=== PATIENT | female | born 1995 | race Caucasian/White ===

== ENCOUNTER 2022-08-26 19:24 | Emergency (ER) | payer MEDICAID ==
[~2022-08-26] VITALS: Ht 167.6 cm; Wt 61.4 kg
[2022-08-26] MEDS ORDERED: HYDROcodone/acetaminophen 5mg/325mg tablet PO ONE (20:20)
[2022-08-26] MEDS ORDERED: ondansetron 4mg rapidly disintigrating tab PO ONE (20:20)
[2022-08-26] MEDS ORDERED: HYDR-3965 PO (20:41)
[2022-08-26] MEDS ORDERED: ONDA4TAB12 PO (20:41)
[2022-08-26 20:51] VITALS: BP 115/72
== END 2022-08-26 20:53 | disposition home or self-care (01) ==
LOC: ER 19:25
DX: M79.601 Pain in right arm (principal); Z88.8 Allergy status to other drugs, medicaments and biological substances; Z79.899 Other long term (current) drug therapy; X58.XXXA Exposure to other specified factors, initial encounter; Y93.89 Activity, other specified; Y92.89 Other specified places as the place of occurrence of the external cause; Y99.8 Other external cause status
CPT/HCPCS: 29125; 73130; 99283; A6446; A6449

== ENCOUNTER 2022-09-04 09:26 | Emergency (ER) | payer MEDICAID ==
[~2022-09-04] VITALS: Ht 167.6 cm; Wt 58.6 kg
[~2022-09-04 09:26] MED LIST: ONDA4TAB12 PO
[2022-09-04 09:33] VITALS: BP 106/64
--- NOTE | 2022-09-04 09:38 | NUR ---
DOCTORS MADE AWRE OF PT WAITING FOR MED SCREENING
--- NOTE | 2022-09-04 09:44 | NUR ---
LONG IN ROOM FOR MED SCREENING EXAM
== END 2022-09-04 10:26 | disposition home or self-care (01) ==
LOC: ER 09:26
DX: S62.306D Unspecified fracture of fifth metacarpal bone, right hand, subsequent encounter for fracture with routine healing (principal); X58.XXXD Exposure to other specified factors, subsequent encounter; Z91.041 Radiographic dye allergy status
CPT/HCPCS: 29125; 99283

== ENCOUNTER 2023-02-26 11:50 | Emergency (ER) | payer MEDICAID, OTHER ==
[~2023-02-26] VITALS: Ht 172.7 cm; Wt 57.1 kg
[2023-02-26 12:09] VITALS: BP 116/72; PULSE 83; RESP 18; TEMP 97; O2SAT 100
[2023-02-26] MEDS ORDERED: NAPR-56 PO (12:12)
== END 2023-02-26 12:24 | disposition home or self-care (01) ==
LOC: ER 11:52
DX: S06.0X0A Concussion without loss of consciousness, initial encounter (principal); Z91.041 Radiographic dye allergy status; Z79.899 Other long term (current) drug therapy; W22.01XA Walked into wall, initial encounter; Y93.89 Activity, other specified; Y92.89 Other specified places as the place of occurrence of the external cause; Y99.8 Other external cause status
CPT/HCPCS: 99282